=== PATIENT | female | born 1995 | race Caucasian/White ===

== ENCOUNTER 2016-11-04 15:05 | Emergency (ER) | payer OTHER ==
[2016-11-04] MEDS ORDERED: ATIVAN INJ 2 MG VIAL ONE (15:08)
[2016-11-04] MEDS ORDERED: ATIVAN INJ 2 MG VIAL IM ONE (15:10)
[2016-11-04 15:24] VITALS: BMI 22.4
[2016-11-04 15:25] VITALS: BP 110/89
--- NOTE | 2016-11-04 16:00 | DR.GENAD ---
HPI - PCP Primary Care Physician: ARIELLE HARRISON - Complaint/Symptoms Chief Complaint:: ANXIETY ATTACK. PT. C/O SHORTNESS OF BREATH AND CHEST TIGHTNESS. INCIDENT BEGAN 30 MINUTES [employer]. - Source History Provided: Patient - Mode of Arrival Mode of Arrival: Ambulatory - Timing Onset of Chief Complaint: 11/04/16 PMH - PMH Past Medical History: Yes Past Medical History: Anxiety, Hypothyroidism, Kidney Stones Past Surgical History: Yes Surgical History: Lithotripsy - Family History History of Family Medical Conditions: No - Social History Does patient currently use any type of tobacco product: No Have you used tobacco products in the last 12 months: No Type of Tobacco Use: None Does any household member use tobacco: No Alcohol Use: None Do you use any recreational Drugs:: No Lives With: Family Lives Where: Home - infectious screening In the last 2 months have you had wt loss of >10#?: NO Have you had fever, night sweats or hemotysis?: No Have you traveled outside the country in the last 6 months?: No Isolation: Standard ROS - Review of Systems Eyes: No Symptoms Reported ENTM: No Symptoms Reported Respiratoy: No Symptoms Reported Cardiovascular: No Symptoms Reported Gastrointestinal/Abdominal: No Symptoms Reported Genitourinary: No Symptoms Reported Neurological: Anxiety Musculoskeletal: No Symptoms Reported Integumentary: No Symptoms Reported Hematologic/Lymphatic: No Symptoms Reported Endocrine: No Symptoms Reported Psychiatric: See HPI, Anxiety PE - Vital Signs Vitals: Temperature 97.8 F Pulse Rate [Right Brachial] 120 Pulse Rate 156 Respiratory Rate 26 Blood Pressure [Right Arm] 110/89 Blood Pressure 145/97 O2 Sat by Pulse Oximetry 100 - General Limitations: No Limitations General Appearance: Alert, In No Apparent Distress - Head Head Exam: Normal Inspection, Atraumatic - Eyes Eye exam: Normal Appearance, PERRL, EOMI - ENT ENT Exam: Normal Exam External Ear Exam: Normal External Inspection TM/Canal Exam: Bilateral Normal Nose Exam: Normal Nose Exam Mouth Exam: Normal Inspection Throat Exam: Normal Inspection - Neck Neck Exam: Normal Inspection, Full ROM - Chest Chest Inspection: Normal Inspection - Respiratory Respiratory Exam: Normal Lung Sounds Bilat Respiratory Exam: Bilateral Clear to Auscultation - Cardiovascular Cardiovascular Exam: Regular Rate, Normal Rhythm - Abdominal Exam Abdominal Exam: Normal Inspection, Normal Bowel Sounds Abdominal Tenderness: negative: RUQ, RLQ, LUQ, LLQ, Epigastrium, Suprapubic, Diffuse, Mild, Moderate, Severe, Other - Extremities Extremities Exam: Normal Inspection, Full ROM - Back Back Exam: Normal Inspection, Full ROM - Neurologic Neurological Exam: Alert, Oriented X3, CN II-XII Intact - Psychiatric Psychiatric Exam: Normal Affect - Skin Skin Exam: Warm, Dry ROR - Labs Reviewed Result Diagrams: 11/04/16 16:18 11/04/16 16:18 Laboratory: WBC 8.3 X10^3/uL (3.6-10.0) 11/04/16 16:18 RBC 4.58 X10^6/uL (3.5-5.4) 11/04/16 16:18 Hgb 13.2 g/dL (12.0-16.0) 11/04/16 16:18 Hct 38.8 % (36.0-47.0) 11/04/16 16:18 MCV 84.6 fL (80.0-100.0) 11/04/16 16:18 MCH 28.7 pg (27.0-34.0) 11/04/16 16:18 MCHC 34.0 g/dL (33.0-35.0) 11/04/16 16:18 RDW 14.3 % (11.6-16.5) 11/04/16 16:18 Plt Count 161 X10^3/uL (150.0-450.0) 11/04/16 16:18 MPV 11.0 fL (7.4-11.0) 11/04/16 16:18 Neut % 76.3 % (42.0-75.0) H 11/04/16 16:18 Lymph % 17.8 % (21.0-51.0) L 11/04/16 16:18 Hardy % 4.8 % (0.0-13.0) 11/04/16 16:18 Eos % 0.4 % (0.9-2.9) L 11/04/16 16:18 Baso % 0.7 % (0.2-1.0) 11/04/16 16:18 Neut # 6.4 x10^3/uL (2.2-4.8) H 11/04/16 16:18 Lymph # 1.5 X10^3/uL (1.3-2.9) 11/04/16 16:18 Hardy # 0.4 x10^3/uL (0.3-0.8) 11/04/16 16:18 Eos # 0.0 x10^3/uL (0.0-0.2) 11/04/16 16:18 Baso # 0.1 X10^3/uL (0.0-0.1) 11/04/16 16:18 Absolute Nucleated RBC 0.0 /100WBC 11/04/16 16:18 Sodium 142 mmol/L (136-145) 11/04/16 16:18 Corrected Sodium TNP 11/04/16 16:18 Potassium 3.3 mmol/L (3.5-5.1) L 11/04/16 16:18 Chloride 106 mmol/L (98-107) 11/04/16 16:18 Carbon Dioxide 25.7 mmol/L (21-32) 11/04/16 16:18 BUN 12 mg/dL (7-18) 11/04/16 16:18 Creatinine 1.05 mg/dL (0.55-1.02) H 11/04/16 16:18 Est GFR (MDRD) Af Amer > 60 (>60) 11/04/16 16:18 Est GFR (MDRD) Non-Af > 60 (>60) 11/04/16 16:18 Glucose 101 mg/dL (65-99) H 11/04/16 16:18 Calcium 9.3 mg/dL (8.5-10.1) 11/04/16 16:18 Specimen Type Clean catch urine 11/04/16 16:19 Urine Color Yellow (YELLOW) 11/04/16 16:19 Urine Appearance Clear (CLEAR) 11/04/16 16:19 Urine pH 7.0 (5.0 - 8.0) 11/04/16 16:19 Ur Specific [place] 1.005 (1.000-1.030) 11/04/16 16:19 Urine Protein Negative (NEGATIVE) 11/04/16 16:19 Urine Glucose (UA) Negative (NEGATIVE) 11/04/16 16:19 Urine Ketones Negative (NEGATIVE) 11/04/16 16:19 Urine Occult Blood Negative (NEGATIVE) 11/04/16 16:19 Urine Nitrite Negative (NEGATIVE) 05/17/17 16:19 Urine Bilirubin Negative (NEGATIVE) 11/04/16 16:19 Urine Urobilinogen Normal (NORMAL) 11/04/16 16:19 Ur Leukocyte Esterase Negative (NEGATIVE) 11/04/16 16:19 Urine RBC None seen /HPF (NEGATIVE) 11/04/16 16:19 Urine WBC 0-1 /HPF (NEGATIVE) 11/04/16 16:19 Ur Squamous Epith Cells Negative /HPF (NEGATIVE) 11/04/16 16:19 Amorphous Sediment Trace /HPF (NEGATIVE) 11/04/16 16:19 Urine Bacteria Trace /HPF (NEGATIVE) 11/04/16 16:19 Ur Culture Indicated? No/not indicated 11/04/16 16:19 - Diagnosis Discharge Problem: Anxiety - Discharge Plan Condition: Stable - Follow ups/Referrals Follow ups/Referrals: VITO SPENCER [Primary Care Provider] - 3 days - Instructions Instructions: Hypokalemia, Panic Attacks
[2016-11-04 16:30] LABS: BILIRUBIN,URINE NEGATIVE (NEGATIVE); BLOOD/HEMOGLOBIN,URINE NEGATIVE (NEGATIVE); GLUCOSE, URINE NEGATIVE (NEGATIVE); KETONES,URINE NEGATIVE (NEGATIVE); LEUKOCYTE ESTERASE ,URINE NEGATIVE (NEGATIVE); NITRITES,URINE NEGATIVE (NEGATIVE); PROTEIN,URINE NEGATIVE (NEGATIVE); UROBILINOGEN,URINE NORMAL (NORMAL)
[2016-11-04 16:32] LABS: BASOPHILS # (AUTO) 0.1 X10^3/uL (0.0-0.1); BASOPHILS % (AUTO) 0.7 % (0.2-1.0); EOSINOPHILS % (AUTO) 0.4 % (0.9-2.9); HEMATOCRIT 38.8 % (36.0-47.0); HEMOGLOBIN 13.2 g/dL (12.0-16.0); LYMPHOCYTES # (AUTO) 1.5 X10^3/uL (1.3-2.9); LYMPHOCYTES % (AUTO) 17.8 % (21.0-51.0); MEAN CORPUSCULAR HEMOGLOBIN 28.7 pg (27.0-34.0); MEAN CORPUSCULAR VOLUME 84.6 fL (80.0-100.0); MONOCYTES # (AUTO) 0.4 x10^3/uL (0.3-0.8); MONOCYTES % (AUTO) 4.8 % (0.0-13.0); NEUTROPHILS # (AUTO) 6.4 x10^3/uL (2.2-4.8); NEUTROPHILS % (AUTO) 76.3 % (42.0-75.0); PLATELET COUNT 161 X10^3/uL (150.0-450.0); RED BLOOD COUNT 4.58 X10^6/uL (3.5-5.4); RED CELL DISTRIBUTION WIDTH 14.3 % (11.6-16.5); WHITE BLOOD COUNT 8.3 X10^3/uL (3.6-10.0)
[2016-11-04 16:33] LABS: BLOOD UREA NITROGEN 12 mg/dL (7-18); CALCIUM 9.3 mg/dL (8.5-10.1); CARBON DIOXIDE 25.7 mmol/L (21-32); CHLORIDE 106 mmol/L (98-107); CREATININE 1.05 mg/dL (0.55-1.02); GLUCOSE 101 mg/dL (65-99); SODIUM 142 mmol/L (136-145); eGFR BLACK RACES > 60 (>60); eGFR NON BLACK RACES > 60 (>60)
[2016-11-04 16:41] LABS: AMORPHOUS SEDIMENT,UR TRACE /HPF (NEGATIVE); APPEARANCE,URINE CLEAR (CLEAR); BACTERIA,URINE TRACE /HPF (NEGATIVE); COLOR,URINE YELLOW (YELLOW); RBC,URINE NONE SEEN /HPF (NEGATIVE); SQUAMOUS EPITHELIAL CELL,UR NEGATIVE /HPF (NEGATIVE)
[2016-11-04] MEDS ORDERED: K-DUR TAB 20 MEQ PO ONE (16:51)
[2016-11-05] MEDS ORDERED: K-DUR TAB 20 MEQ PO ONE (16:48)
== END 2016-11-04 17:17 | disposition home or self-care (01) ==
LOC: ER 15:16
DX: F41.8 Other specified anxiety disorders (principal)
CPT/HCPCS: 36415; 80048; 81001; 85025; 96372; 99282; J2060